=== PATIENT | male | born 1985 | race Caucasian/White ===

== ENCOUNTER 2023-01-29 05:57 | Emergency (ER) | payer SELFPAY ==
[2023-01-29] VITALS (9 sets, daily range): BP systolic 144–166; BP diastolic 84–96; PULSE 78–92; RESP 18–22; TEMP 36.9; O2SAT 92–95
--- NOTE | ~2023-01-29 | XR_ITS ---
EXAMINATION: XR chest 1V portable INDICATION: Cough TECHNIQUE: Portable AP chest at 0739 hours COMPARISON: None available FINDINGS: The lungs are free of acute opacities. No pleural effusion or pneumothorax. The lung volume s are low. The cardiomediastinal silhouette is normal. IMPRESSION: 1. No acute cardiopulmonary abnormality. Reviewed, dictated and finalized at location F. [employer]
--- NOTE | 2023-01-29 07:21 | ED.GENADULT ---
HPI - General Adult General Chief complaint: Shortness of Breath/Dyspnea Stated complaint: cough, SOB Time Seen by Provider: 01/29/23 07:20 Source: patient History of Present Illness HPI narrative: 37 years old white male came to the emergency room with cold symptoms including runny nose, nasal congestion, hoarseness of voice, intermittent coughing, lately intermittent coughing of sputum with blood streaks . And body aches. 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 Related Data Allergies Allergy/AdvReac Type Severity Reaction Status Date / Time No Known Allergies Allergy Verified 01/29/23 09:19 Review of Systems Review of Systems: All systems reviewed & are unremarkable except as noted in HPI and below Exam Narrative: General appearance: Well-developed, well-nourished Skin: Normal color Head: Normocephalic, nontraumatic Eyes: Clear conjunctiva ENT: Slight erythematous oropharynx Neck: Supple, nontender Chest and respiratory: Airway patent, no respiratory distress, no accessory muscle use Heart: Regular rate/rhythm Abdomen: Soft, nontender, no organomegaly, quiet bowel sounds Vascular: Normal peripheral pulses, normal capillary refill. Musculoskeletal: Normal range of motion, nontender back Neurologic: Alert and oriented ?3, TIP BANDER is normal as tested, no gross motor deficit Course Vital Signs Vital signs: Vital Signs Temperature 36.9 C 01/29/23 06:19 Pulse Rate 82 01/29/23 06:19 Respiratory Rate 20 01/29/23 06:19 Blood Pressure 163/89 H 01/29/23 06:19 Pulse Oximetry 95 01/29/23 06:19 Temperature 36.9 C 01/29/23 06:19 Pulse Rate 82 01/29/23 06:19 Respiratory Rate 20 01/29/23 06:19 Blood Pressure 163/89 H 01/29/23 06:19 Pulse Oximetry 95 01/29/23 06:19 Medical Decision Making [facility] Narrative Medical decision making narrative: patient presents with cold symptoms, worse with little kids. Workup should today came back positive for RSV, chest x-ray showed no acute abnormalities. Patient presents with intermittent productive cough of bloody sputum which is high likely secondary to frequent coughing. Hemodynamically stable, will be discharged on albuterol and corticosteroids. Excuse of work for 2 days. the pt was discharged to home.the pt,s condition upon discharge was fair,education was provided to the pt in reference to the final impression,discharge study results,treatment,prognosis and need for follow up . Medical Records Medical records reviewed: Yes I reviewed the external patient's medical records. Vital Signs Vital Signs: Vital Signs Temperature 36.9 C 01/29/23 06:19 Pulse Rate 82 01/29/23 06:19 Respiratory Rate 20 01/29/23 06:19 Blood Pressure 163/89 H 01/29/23 06:19 Pulse Oximetry 95 01/29/23 06:19 Temperature 36.9 C 01/29/23 06:19 Pulse Rate 82 01/29/23 06:19 Respiratory Rate 20 01/29/23 06:19 Blood Pressure 163/89 H 01/29/23 06:19 Pulse Oximetry 95 01/29/23 06:19 Lab Data Lab results reviewed: Yes I reviewed the patient's lab results. Labs: Lab Results 01/29/23 Range/Units 07:47 Influenza A (RT-PCR) Negative (Negative) Influenza B (RT-PCR) Negative (Negative) RSV (RT-PCR) Positive A (Negative) SARS-CoV-2 RNA (RT-PCR) Negative (Negative) Imaging Data Radiologist's impression: Impressions Chest X-Ray 01/29/23 07:50 IMPRESSION: 1. No acute cardiopulmonary abnormality. Critical Care Time Critical Care Time Critical Care Time: No Discharge Plan Discharge Clinical Impression: Respiratory syncytial virus (RSV) infection Patient Disposition: Home, Self-Care C
[2023-01-29 08:31] LABS: Influenza A QL RT-PCR Negative (Negative); Influenza B QL RT-PCR Negative (Negative); RSV RNA, RT-PCR Positive (Negative); SARS-CoV-2 RNA PCR Negative (Negative)
== END 2023-01-29 09:30 | disposition home or self-care (01) ==
PROVIDERS: Emergency Provider Emergency Medicine
DX: J22 Unspecified acute lower respiratory infection (principal); B97.4 Respiratory syncytial virus as the cause of diseases classified elsewhere
CPT/HCPCS: 71045; 87637; 99283